=== PATIENT | female | born 1980 | race Caucasian/White ===

== ENCOUNTER 2017-10-10 14:38 | Observation (INO) ==
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
--- OUTSIDE RECORDS SUMMARY | 2017-10-10 17:13 | External Medical Summary | Continuity of Care Document ---
:1980 Author Organization [facility] Address [address] [place], [place] [phone] Phone Care Team Providers Name Role Phone [...] Routine - Supervision of elderly multigravida, - third [...] 19 Yrs + Flu Vaccine - Quadrivalent Hemoglobin count, colorimetric Hematocrit blood count Glucose test Venpnctr fngr/heel/ear stick routne OB Visit No Charge Results Test Name Date and Time Measure Units Reference Range Abnormal Flag Comments Panel Description: Glucose [Mass/volume] in Serum or Plasma --1 hour post 50 g glucose PO GLUCOSE, 127 mg/dL <140 N Test performed at [facility] 12:02:00 DIAGNOSTICS [id number] (50G)-[address] [place] [address]Vqnjhcwe: LAURENCE REDMAN DO,MPH Panel Description: HEMOGLOBIN + HEMATOCRIT HEMOGLOBIN 12:02:00 11.6 g/dL 11.7-15.5 L HEMATOCRIT 12:02:00 34.8 % 35.0-45.0 L REPORT COMMENT:FASTING :NOTest performed at [facility] [id number] [place] [address]Bzhvhxrp: LAURENCE REDMAN DO,MPH Advance Directives Directive Yes / No Effective Date File Name Unknown Encounters Encounter Practice Location Reason(s) Diagnoses Date Provider Care Team Description For Visit Members Jada Schulte Supervision of Finn Referring In Womens elderly 7 [place] [address] Provider: santiago Mcmillangravida, 7 Medical [facility] Box third [email or web address] [place] Finn Martinez, 1522, weeks gestation Dr [facility] Sierra Garza, of 120, Medical CHERELLE [facility] [id number], [place] [address], [id number] Eris, tel: , . CHERELLE, [id number] tel: [phone]. [phone] tel:[phone] Jada Schulte Supervision of Floyd Referring In Womens elderly 4-201 [place]. Provider: Ten HAMMER, multigravida, 7 700 Louie [address] third [email or web address] Medical Finn Martinez, 1522, weeks gestation [place] 700 Kayla, of , [facility] CHERELLE, [address] [place] [id number], Eris, Milad 120, [place] CHERELLE Schulte, tel: [phone] [place], , [place]. [id number]. tel: tel: [phone] Jada Schulte Supervision of Sep-2 Finn Referring In Womens elderly [place]. 700 Provider: santiago Mcmillangravikenyatta, 7 [facility] second Center Finn R, 1522, [email or web address] weeks Milad Guerrero, gestation of 120, Medical [place], Joaquin [address]te Dr [id number], [place], Milad 120, [place] [id number] Eris, tel: , [place]. [place], tel: [phone]. [id number] tel:[phone] Jada Schulte Supervision of Jun-3 Finn Referring In Womens elderly [place]. 700 Provider: miles Mcmillanavikenyatta, 7 [facility] Finn R, 1522, [email or web address] weeks Milad Guerrero, gestation of 120, Medical ID, Joaquin Schulte Dr [id number], [place], Milad 120, [place] [id number] Eris, tel: , [place]. [place], tel: [phone]. [id number] tel:[phone] Jada Schulte Supervision of Jun-3 Finn Referring In Womens Ultrasound elderly [place]. 700 Provider: miles Mcmillanavikenyatta, 7 [facility] second Center Finn R, 1522, [email or web address] weeks Milad Guerrero, gestation of 120, Medical [place], Joaquin Schulte Dr [id number], [place], Milad 120, [place] [id number] Eris, tel: , [place]. [place], tel: [phone]. [id number] tel:[phone] Jada Schulte Supervision of Jun-0 Finn Referring In Womens elderly [place]. 700 Provider: santiago Mcmillangravida, 7 [facility] Finn R, 1522, [email or web address] weeks Milad Guerrero, gestation of 120, Medical ID, Joaquin Schulte Dr [id number], [place], Milad 120, [place] [id number] Eris, tel: , [place]. [place], tel: [phone]. [phone] tel:[phone] Jada Schulte Supervision of Ambrosio-2 Finn Referring In Womens elderly 7-201 [place]. 700 Provider: Ten HAMMER, multigravida, 7 [facility] Finn R, 1522, trimesterEncounte , Milad 700 katie Garza for suprvsn of 120, Medical [place], normal , [facility] [id number], first [email or web address] [place], Milad 120, [place] weeks gestation [id number] Eris, tel: of , [place]. [place] tel: [phone]. [id number] tel:[phone] Jada Schulte Oct-2 Finn Referring In Womens Follow-Up, 0-201 [place]. 700 Provider: Ten HAMMER, Routine 5 [facility] Finn Martinez, 1522, , Milad 700 [place], 120, Medical E[facility] [id number], [place], [facility] 120, [place] [id number] Eris, tel: , [place]. [place], tel: [phone]. [id number] tel:[phone] Jada Schulte Aug-1 Finn Referring In Womens 8-201 [place]. 700 Provider: Ten HAMMER, 5 [facility] Finn Martinez, 1522, , Milad Sierra Garza, 120, Medical Eris [facility] [id number], [place], Milad 120, [place] [id number] Eris, tel: , [place]. [place], tel: [phone]. [id number] tel:[phone] Jada Schulte b-1 Finn Referring In Womens 0-201 [place]. 700 Provider: Ten HAMMER, 5 [facility] Finn Martinez, 1522, , Milad 700 [place], 120, Medical Eris [facility] [id number], [place], Mil[place] 120, [place] [id number] Eris, tel: , [place]. [place] tel: [phone]. [phone] tel:[phone] Jada Schulte Jan- Finn Referring In Womens 4-201 [place]. 700 Provider: Health HARMAN, 3 [facility] Box [place] Finn Martinez [address] [place], 120, [facility], [facility] [id number], [place], [facility] 120, [place] [id number] Eris, tel: , [place]. [place], tel: [phone]. [id number] tel:[phone] Jada Schulte May- Finn In Womens 1-200 [place]. 700 Health NE, 8 Medical PO Box Center 1522, , Milad Garza, 120, Eris VILLARREAL, [id number], [place], [place] [id number] tel: , . tel: [phone] Family History Family Member Diagnosis Age At [...] name Insurance type Covered republican ID Authorization(s) [employer]Share CI [id number] [facility] CI [id number] [facility] Medical Share Ins CI [id number] [facility] Medical Share Ins [place] [id number] Social History Type Description Quantity Date Captured Alcohol Use Details No Caffeine Use Details Unknown Tobacco Use Status Unknown Smoking Status Never smoker Vital Signs Date / Height Weight BMI Pulse Blood Temperature Respiratory Body Head BMI Time: Rate Pressure Rate Surface Circumference percentile Area 173.10 27.1 -2017 lbs 1 11:11 kg/m AM eter (2) 173.10 27.1 125/90 2017 lbs 1 mm[Hg] 11:44 kg/m AM eter (2) Chief Complaint And Reason For Visit Unknown Chief Complaint And Reason For Visit Reason For Referral Reason For Referral Unknown Plan Of Care Date Type Action Status Appointment My Greene BOOKED Future Order: Radiology Order OB Detailed Complete Ultrasound Ordered ([id number]) Future Order: Lab Order Pap Smear With [...]
--- OUTSIDE RECORDS SUMMARY | 2017-10-10 17:13 | External Medical Summary | Continuity of Care Document ---
:1980 Author Organization [facility] Address [address] [place], [place] [phone] Phone Care Team Providers Name Role Phone [...] second trimester 16 weeks gestation of - Active Procedures Procedure Date Detailed Compled OB Ultrasound, Single Fetus Results Test Name Date and Time Measure Units Reference Range Abnormal Flag Comments Unknown Advance Directives Directive Yes / No Effective Date File Name Unknown Encounters Encounter Practice Location Reason(s) Diagnoses Date Provider Care Team Description For Visit Members Jada Schulte Supervision of Finn Referring In Womens elderly [place]. 700 Provider: santiago Mcmillangravikenyatta, 7 Medical [place] PO Box second Center Finn R, 1522, [email or web address] weeks Milad Guerrero, gestation of 120, Medical [place], Eris, [place] [id number], [place], [place] 120, [place] [id number] Eris, tel: , [place]. [place], tel: [phone]. [id number] tel:[phone] Jada Schulte Supervision of Finn Referring In Womens Ultrasound elderly [place]. 700 Provider: santiago Mcmillangravikenyatta, 7 Medical [facility] Box second Center Finn R, 1522, [email or web address] weeks Milad Guerrero, gestation of 120, Medical [place], Eris, [place] [id number], [place], Mil[place] 120, [place] [id number] Eris, tel: , [place]. [place] tel: [phone]. [phone] tel:[phone] Jada Schulte Supervision of Finn Referring In Womens elderly - [place]. 700 Provider: Ten HAMMER, santiagogravikenyatta, 7 Medical [facility] Box second Center Finn R, 1522, weeks Milad Guerrero, gestation of 120, Medical [place], [facility] [id number], [place], Mil[place] 120, [place] [id number] Eris, tel: , [place]. [place] tel: [phone]. [id number] tel:[phone] Jada Schulte Supervision of Finn Referring In Womens elderly -201 [place]. 700 Provider: Ten HAMMER, santiagogravida, 7 [facility] Box first Center Finn R, 1522, trimesterEncounte Milad Guerrero r for suprvsn of 120, Medical [place], normal , [facility] [id number], first [email or web address] [place], Milad 120, [place] weeks gestation [id number] Eris, tel: of , [place]. [place] tel: [phone]. [id number] tel:[phone] Jada Schulte Oct-2 Finn Referring In Womens Follow-Up, 0-201 [place]. 700 Provider: Ten HAMMER, Routine 5 [facility] Finn Martinez, 1522, , [place], 120, Medical Eris VILLARREAL, [place] [id number], [place], Mil[place] 120, [place] [id number] Eris, tel: , [place]. [place], tel: [phone]. [id number] tel:[phone] Jada Schulte Aug-1 Finn Referring In Womens 8-201 [place]. 700 Provider: Ten HAMMER, 5 [facility] Finn Martinez, 1522, Milad Guerrero, 120, Medical [facility] [id number], [place], Mil[place] 120, [place] [id number] Eris, tel: , [place]. [place], tel: [phone]. [id number] tel:[phone] Jada Schulte Feb-1 Finn Referring In Womens 0-201 [place]. 700 Provider: Ten HAMMER, 5 [facility] Finn Martinez, 1522, Dr Milad Sierra Garza, 120, Medical [facility] [id number], [place], [place] 120, [place] [id number] Eris, tel: , [place]. [place], tel: [phone]. [id number] tel:[phone] Jada Schulte Jan-1 Finn Referring In Womens 4-201 [place]. 700 Provider: Health HARMAN, 3 [facility] Finn R, 1522, Dr Milad Sierra Garza, 120, Medical [facility] [id number], [place], Mil[place] 120, [place] [id number] Eris, tel: , [place]. [place], tel: [phone]. [id number] tel:[phone] Jada Schulte Perez-1 Finn In Womens 1-200 [place]. 700 Health HARMAN, 8 [facility] Center 1522, Milad Guerrero, 120, Eris VILLARREAL [id number], [place], [place] [id number] tel:[phone] , . [id number] tel: [phone] Family History Family Member Diagnosis Age At Onset Father B12 autoimmune defic Father Diabetes Mother Hypertension 40 Paternal Grandfather Esophageal Cancer Immunizations Vaccine Date Status Comments Tdap completed Source: New Immunization Record Influenza, injectable, completed Source: New Immunization Record quadrivalent, preservative free, 3 yrs or older Payers Payer name Insurance type Covered democrat ID Authorization(s) [facility] CI [id number] [facility] Ins [place] [id number] [facility] Ins CI [id number] Social History Type Description Quantity Date Captured [...] Radiology Order OB Detailed Complete Ultrasound Ordered ([id number]) Future Order: Lab Order Pap Smear With [...]
--- OUTSIDE RECORDS SUMMARY | 2017-10-10 17:14 | External Medical Summary | Continuity of Care Document ---
:1980 Author Organization [facility] Allergies Active Description Code Type Severity Reaction Onset Reported/ Identified Relationship Clinical to Patient Status Yes No Known 67435 3 N/A N/A Drug 0 Allergies Medications Medication Packaging Start Date Stop Date Route Dosage Sig Tablet 09/13/2015 NOR-Q-D 6 take 1 tablet by oral route every day Tablet 06/05/2016 ENPRESSE 7 take 1 tablet by oral route every day Tablet 05/31/2017 AMOXICILLIN 7 take 1 tablet by ORAL route 3 times every day for 7 days Tube 07/25/2017 NAFTIFINE HCL 7 apply by topical route 2 times every day to the affected and surrounding areas of skin Problems Date Dx Coded Attending Type Code Diagnosis Diagnosed By 07/19/2017 Louie Briseno O09.521 Supervision of elderly multigravida, first trimester 07/19/2017 Louie Briseno Z34.81 Encounter for suprvsn of normal , first trimester 07/19/2017 Louie Briseno Z3A.11 11 weeks gestation of 07/19/2017 Louie Briseno O09.521 Supervision of elderly multigravida, first trimester 07/19/2017 Louie Briseno Z34.81 Encounter for suprvsn of normal , first trimester 07/19/2017 Louie Briseno Z3A.11 11 weeks gestation of 07/19/2017 Louie Briseno O09.521 Supervision of elderly multigravida, first trimester 07/19/2017 Louie Briseno Z34.81 Encounter for suprvsn of normal , first trimester 07/19/2017 Louie Briseno Z3A.11 11 weeks gestation of 07/19/2017 Louie Briseno O09.521 Supervision of elderly multigravida, first trimester 07/19/2017 Louie Briseno Z34.81 Encounter for suprvsn of normal , first trimester 07/19/2017 Louie Briseno Z3A.11 11 weeks gestation of 07/19/2017 Louie Briseno O09.521 Supervision of elderly multigravida, first trimester 07/19/2017 Louie Briseno Z34.81 Encounter for suprvsn of normal , first trimester 07/19/2017 Louie Briseno Z3A.11 11 weeks gestation of 07/19/2017 Louie Briseno O09.521 Supervision of elderly multigravida, first trimester 07/19/2017 Louie Briseno Z34.81 Encounter for suprvsn of normal , first trimester 07/19/2017 Louie Briseno Z3A.11 11 weeks gestation of 07/19/2017 Louie Briseno O09.521 Supervision of elderly multigravida, first trimester 07/19/2017 Louie Briseno Z34.81 Encounter for suprvsn of normal , first trimester 07/19/2017 Louie Briseno Z3A.11 11 weeks gestation of 07/25/2017 Louie Briseno O09.522 Supervision of elderly multigravida, second trimester 07/25/2017 Louie Briseno Z3A.20 20 weeks gestation of 09/17/2017 Carmen Barrientos O09.523 Supervision of L elderly multigravida, third trimester 09/17/2017 Carmen Barrientos Z3A.28 28 weeks gestation L of Procedures Code Description Performed By Performed On 05/21/2017 18940 Venpnctr fngr/heel/ear stick routne OB 05/21/2017 09928 Visit No Charge OB 05/21/2017 73851 Panel With An HIV Cult 05/21/2017 85035 bactr, aerobic, addl methods Cult, 05/21/2017 52786 bactr, alex colonycnt, urine Cult, 05/21/2017 02145 bactr, ident isolate, urine Infct 05/21/2017 77051 antign, chlamydia trac, ampl 05/21/2017 39139 Neisseria Gonorrhea, Amplified DNA OB 05/21/2017 OBPRE Prepayment Agreement OB 07/25/2017 58513 US, DETAILED, SNGL FETUS OB 09/17/2017 54448 Visit No Charge 09/17/2017 78041 Immuniz admnin, 1 vac, sngl/combo Flu 09/17/2017 77284 Vaccine - Quadrivalent Results Encounters ACCT No. Visit Discharge Status Pt. Type Provider Facility Loc./Unit Complaint Date/Time [id number] 09/17/2017 09/17/2017 [facility] Outpatient Floyd, 11:30:00 23:59:59 Carmen Miles [id number] 09/17/2017 09/17/2017 [facility] Outpatient Finn, 00:00:00 23:59:59 Louie Martinez [id number] 08/20/2017 08/20/2017 [facility] Outpatient Finn, 10:20:00 23:59:59 Louie Martinez [id number] 07/25/2017 07/25/2017 [facility] Outpatient Finn, 08:45:00 23:59:59 Louie Martinez [id number] 07/25/2017 07/25/2017 [facility] Outpatient Finn, 08:15:00 23:59:59 Louie Martinez [id number] 06/25/2017 06/25/2017 [facility] Outpatient Finn, 10:20:00 23:59:59 Louie Martinez [id number] 05/23/2017 05/23/2017 [facility] Outpatient Finn, 08:59:00 23:59:59 Louie Martinez [id number] 05/21/2017 05/21/2017 [facility] Outpatient Finn, 10:15:00 23:59:59 Louie Martinez [id number] 04/23/2017 04/23/2017 [facility] Outpatient Finn, 17:03:00 23:59:59 Louie Martinez [id number] 06/05/2016 06/05/2016 [facility] Outpatient Finn, 14:44:00 23:59:59 Louie Martinez [id number] 09/13/2015 09/13/2015 [facility] Outpatient Finn, 10:00:00 23:59:59 Louie Martinez [id number] 07/28/2015 07/28/2015 [facility] Outpatient Finn, 21:42:00 23:59:59 Louie Martinez [id number] 07/27/2015 07/27/2015 [facility] Outpatient Finn, 13:04:00 23:59:59 Louie Martinez [id number] 07/26/2015 07/26/2015 [facility] Outpatient Finn, 16:59:00 23:59:59 Louie Martinez [id number] 07/26/2015 07/26/2015 [facility] Outpatient Finn, 10:20:00 23:59:59 Louie Martinez [id number] 07/19/2015 07/19/2015 [facility] Outpatient Finn, 08:40:00 23:59:59 Louie Martinez [id number] 07/12/2015 07/12/2015 [facility] Outpatient Finn, 10:20:00 23:59:59 Louie Martinez [id number] 10/10/2017 Document 13:20:00 Registration [id number] 10/01/2017 Document 10:20:00 Registration
[2017-10-10] MEDS ORDERED: LABETALOL 100mg/20ml INJECTION IVP ONE ×2 (19:51→20:56)
[2017-10-10] MEDS ORDERED: BETAMETHASONE 30 MG/5 ML INJECTION IM ONE (19:52)
[2017-10-10] MEDS ORDERED: MAGNESIUM SULFATE DRIP 20 GM/500 ML BAG IV SCH (20:00)
[2017-10-10] MEDS ORDERED: MAGNESIUM SULFATE 6gm PREMIX 6 GM/50 ML BAG IV ONE (20:10)
--- NOTE | 2017-10-10 20:33 | OB/GYN History & Physical ---
- History of Present Illness Date of Admission: 10/10/17 15:52 Reason for Admission: other (Elevated blood pressures in the 3rd trimester) History of Present Illness: 37 y/o at 31w2d by 20 wga cierra present to from office after having elevated Blood pressures in office. She had PIH lab WNL and started a 24 TUP. during the evaluation period she continued to have severe range blood pressures. She denies MORRISON, Vision changes, or RUQ pain. She has a history of previous pregnancies complicated by mild preeclampsia x 2 with delivery at 37 wga. History of GHTN in 1st . Expected Date of Delivery: 12/07/17 : 5 Para: 4 - OB History #1 Delivery Type: vaginal delivery Year: 2007 Complications: GHTN #2 Delivery Type: vaginal delivery Year: 2009 #3 Delivery Type: vaginal delivery Year: 2012 Complications: Mild preeclampsia #4 Delivery Type: vaginal delivery Year: 2014 Complications: Mild preeclampsia Review of Systems - Constitutional Constitutional: Present: as per HPI - EENT Eyes: Present: as per HPI - Cardiovascular Cardiovascular: Absent: chest pain, palpitations - Respiratory Respiratory: Absent: cough, dyspnea, wheezing - Gastrointestinal Gastrointestinal: Absent: change in bowel habits, constipation, diarrhea, nausea , vomiting - Genitourinary Genitourinary: Absent: dysuria, hematuria - Musculoskeletal Musculoskeletal: Absent: arthralgias, back pain - Integumentary/Breasts Integumentary: Absent: pruritus, rash - Neurological Neurological: Absent: dizziness, headache(s), numbness - Psychiatric Psychiatric: Absent: anxiety, depression - Endocrine Endocrine: Absent: cold intolerance, heat intolerance - Hematologic/Lymphatic Hematologic/Lymphatic: Absent: easy bleeding, easy bruising [facility] Patient Stated Medical History Herpes No Human Immunodeficiency Virus ( No HIV) Maternal Gestational Diabetes No Now Yes Medical History Updates: Ulcer Surgical History: None Family History: Neg - Social History Smoking status: Never smoker Substance use type: does not use Alcohol intake frequency: does not drink Household members: spouse, children Medications Home Medications Medication Instructions Recorded Confirmed Type Vits W-Ca,Fe,Fa(<1MG) 1 tab PO #0 10/05/10 History ( Vitamins) Allergies Allergy/AdvReac Type Severity Reaction Status Date / Time No Known Drug Allergies Allergy Unknown Verified 10/10/17 20:15 Exam - Constitutional Present: no acute distress - Neck Exam Present: supple, full ROM - Cardiovascular Exam Present: RRR - Abdominal Exam Comments: Gravid - Extremities Exam Extremities: Present: non tender - Neurological Exam Present: alert, oriented X3 - Psychiatric Exam Present: normal 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 No other signs or symptoms. Start MGSO4, ANCS. Transfer to tertiary care center. Current visit : Yes Status: Acute (2) 31 weeks gestation of Current visit: Yes Status: Acute
[2017-10-10 20:45] VITALS: BMI 27.4
[2017-10-10 20:47] VITALS: BP 150/90; PULSE 102; RESP 16; TEMP 99.1
--- NOTE | 2017-10-10 20:49 | Discharge Summary ---
DC Information/Hospital Course Date of admission: 10/10/17 15:52 Anticipated date of discharge: 10/10/17 Attending Physician: Louie Briseno MD (1) Preeclampsia Qualifiers: Trimester: third trimester Qualified Code(s): O14.93 - Unspecified pre- eclampsia, third trimester Status: Acute Problem details: Preeclampsia with severe features by BP. No other signs or symptoms. Start MGSO4, ANCS. Transfer to tertiary care center. (2) 31 weeks gestation of Status: Acute - Hospital Course Hospital Course: 10/10/17 20:46 Admitted for PIH evaluation had severe range blood pressure will transfer to tertiary care center in case of need for premature delivery Laboratory: Labs from last 24 hours 10/10/17 10/10/17 16:32 16:31 WBC 9.9 RBC 3.76 L Hgb 11.9 L Hct 35.6 L MCV 94.7 MCH 31.6 MCHC 33.4 RDW Std Deviation 41.7 Plt Count 183 MPV 10.7 Immature Gran % (Auto) 0.2 Neut % (Auto) 74.3 H Lymph % (Auto) 18.8 L Long % (Auto) 6.1 Eos % (Auto) 0.4 Baso % (Auto) 0.2 Neut # (Auto) 7.4 Lymph # (Auto) 1.9 Long # (Auto) 0.6 Eos # (Auto) 0.0 Baso # (Auto) 0.0 Abs Immat Gran (auto) 0.02 Turbidity < 20 Sodium 137 Potassium 3.8 Chloride 105 Carbon Dioxide 25 Anion Gap 7 BUN 8.0 Creatinine 0.6 L GFR Calculation 113 BUN/Creatinine Ratio 13 Glucose 79 Calculated Osmolality 261 Calcium 9.5 Total Bilirubin 0.40 Icterus Index < 2 AST 22 ALT 42 Alkaline Phosphatase 118 Total Protein 6.6 Albumin 3.3 L Globulin 3.3 Albumin/Globulin Ratio 1.0 L Specimen Hemolysis < 15 Additional Comments: Case discussed with Dr. Kenneth Young at [facility] will accept transfer. CAP COVERER Exam - Constitutional Present: no acute distress - Routine Neck Exam Present: supple, full ROM - Routine Cardiovascular Exam Present: RRR - Routine Extremities Exam Extremities: Present: non tender - Routine Neurological Exam Present: alert, oriented X3 - Routine Psychiatric Exam Present: normal affect Discharge Plan - Med Rec/Dispo Prescriptions: New RX: Magnesium Sulfate in Water [Magnesium Sulf 4% IV Soln] 20 gm IV .Q10H iv.soln Continue Vits W-Ca,Fe,Fa(<1MG) ( Vitamins) 1 tab PO #0 - Disposition 02 To [facility] Acute Care
--- NOTE | 2017-10-11 07:06 | Progress Note ---
DATE OF VISIT: 10/10/2017 ADMISSION NOTE This is a 37-year-old white female, 31.2 weeks gestational age, who was sent to the hospital today for elevated blood pressures. She is a G5, P4 and her best blood pressure in the office was 162/102. Her initial blood pressure in the hospital was 162/108 and the next blood pressure 15 minutes later was 135/84. However, her next three were in the 145-151/99-102 range. Her platelets are normal. Her liver enzymes are normal. Her creatinine is normal. We started a 24-hour urine. An NST is reassuring for gestational age. Based on the fact that I don't believe we'll be delivering in the next 7 days based on the information so far, I did not give steroids. So the plan I discussed with the patient and her is to stay in the hospital and continue to gather data and blood pressures for the next 24 hours. If she stays in the gestational hypertension mild range, then we'll begin seeing her once to twice a week and do weekly testing. Our goal will be to get to 37 weeks. If she gets in the severe range, then she will be transferred to [place]. If she gets over 34 weeks and gets in the severe range, then we would deliver here. Questions were answered to the patient and her 's satisfaction at this point in time. ELLI
== END 2017-10-10 21:13 | disposition short-term general hospital (02) ==
LOC: MC
PROVIDERS: ADMIT Obstetrics & Gynecology; ATTEND Obstetrics & Gynecology